=== PATIENT | female | born 2005 | race Caucasian/White ===

== ENCOUNTER 2023-12-14 10:03 | Outpatient (REF) | payer BC, SELFPAY ==
--- NOTE | ~2023-12-14 | US_ITS ---
EXAMINATION: US PELVIS CLINICAL INFORMATION: Dysmenorrhea. History of ovarian cyst. COMPARISON: None available. TECHNIQUE: Ultrasound of the pelvis is performed using both transabdominal and transvaginal transducers along with Doppler. Transvaginal imaging is performed due to inadequate visualization transabdominally. FINDINGS: Uterus: The uterus is anteverted and measures 7.7 x 2.5 x 4.5 cm. The double wall endometrial thickness is 2.4 mm. The uterus is smooth in contour and has normal myometrial echogenicity. No visible fibroid. Adnexa: Both ovaries are visualized. There is normal color flow to the adnexa. There is no ovarian torsion. There is no pelvic ascites or fluid collection. Right ovary measures 2.4 x 2 x 1.5 cm. Volume 3.9 mm Left ovary measures 3.3 x 2.1 x 2.1 cm. Volume 7.5 mL. Cul-de-sac: Small volume of fluid US/US pelvic and transvaginal IMPRESSION: Normal ultrasound of pelvis. Electronically signed by: Yosi Scruggs MD 12/14/2023 03:14 PM EDT
== END 2023-12-14 10:04 | disposition home or self-care (01) ==
LOC: HO.UMASIMG 10:03
PROVIDERS: Visit Provider Nurse Practitioner Women's Health
DX: N94.6 Dysmenorrhea, unspecified (principal)
CPT/HCPCS: 76830; 76856